=== PATIENT | female | born 1965 | race American Indian/Alaskan Native ===

== ENCOUNTER 2019-04-01 11:23 | Emergency (ER) | payer MEDICARE, MEDICAID ==
[2019-04-01 11:23] VITALS: BMI 21.7
[2019-04-01] MEDS ORDERED: Sodium Chloride 0.9% 1,000 ML IV ONE (11:53)
[2019-04-01 12:03] LABS: BASO # 0.1 K/uL (0.0-0.2); BASO % 0.6 % (0.0-2.0); EOS % 0.3 % (0.0-4.0); HEMOGLOBIN 13.8 g/dL (11.0-16.0); LYMPH # 1.4 K/uL (1.0-4.3); LYMPH % 14.1 % (20.0-40.0); MEAN CELL VOLUME 101.1 fL (81.0-99.0); MEAN CORPUSCULAR HEMOGLOBIN 34.9 pg (27.0-31.0); MEAN CORPUSCULAR HGB CONC 34.5 g/dL (33.0-37.0); MONO # 0.4 K/uL (0.0-0.8); MONO % 4.5 % (0.0-10.0); NEUT % 80.5 % (50.0-75.0); RBC 3.97 Mil/uL (3.80-5.20); RED CELL DISTRIBUTION WIDTH 13.1 % (11.5-14.5)
[2019-04-01] MEDS ORDERED: Sodium Chloride 0.9% 1,000 ML ONE (12:07)
[2019-04-01 12:20] LABS: ALB/GLOB RATIO 1.3 (1.0-2.1); BLOOD UREA NITROGEN 17 mg/dL (7-17); CALCIUM 9.8 mg/dl (8.6-10.4); GFR NON-AFRICAN AMERICAN > 60; LIPASE 88 U/L (23-300)
[2019-04-01 12:21] LABS: ALT/SGPT 21 U/L (9-52); AST/SGOT 47 U/L (14-36)
[2019-04-01 12:26] LABS: HCG,QUALITATIVE URINE NEGATIVE (NEGATIVE)
[2019-04-01 12:33] LABS: SQUAMOUS EPITHIAL 6 /hpf (0-5); URINE BACTERIA RARE (<OCC); URINE BILIRUBIN NEGATIVE (NEGATIVE); URINE BLOOD NEGATIVE (NEGATIVE); URINE CLARITY Hazy (Clear); URINE COLOR Yellow (YELLOW); URINE GLUCOSE (UA) 3+ mg/dL (Normal); URINE HYALINE CAST 0-2 /lpf (0-2); URINE LEUKOCYTE ESTERASE NEG Leu/uL (Negative); URINE PROTEIN 1+ mg/dL (NEGATIVE)
--- NOTE | 2019-04-01 12:55 | C.PDOC ---
History Of Present Illness 53 year old female presents to ED with complaint of abdominal pain, nausea, vomiting, and loose stools since this morning. Patient has a PMHx of peptic ulcer disease and does not currently take any medication for it. She denies chest pain, SOB, fever, hematuria, and dysuria. Time Seen by Provider: 04/01/19 11:43 Chief Complaint (Nursing): Abdominal Pain History Per: Patient History/Exam Limitations: no limitations Onset/Duration Of Symptoms: Hrs (4) Current Symptoms Are (Timing): Still Present Location Of Pain/Discomfort: Diffuse Radiation Of Pain To:: None Quality Of Discomfort: "Pain" Associated Symptoms: Nausea, Vomiting, Other (loose stools). denies: Fever, Chills, Urinary Symptoms Exacerbating Factors: None Alleviating Factors: None Past Medical History Reviewed: Historical Data, Nursing Documentation, Vital Signs Vital Signs: Last Vital Signs Temp 97.5 F L 04/01/19 11:27 Pulse 83 04/01/19 11:27 Resp 20 04/01/19 11:27 BP 175/91 H 04/01/19 11:27 Pulse Ox 100 04/01/19 11:27 Primary Care Provider: Non [facility] Provider, - Medical History PMH: Bipolar Disorder, CHF, COPD, HTN, Hypercholesterolemia Denies: Chronic Kidney Disease Other PMH: Peptic ulcer disease Surgical History: No Surg Hx Family History: States: Unknown Family Hx - Social History Hx Alcohol Use: No Hx Substance Use: Yes Review Of Systems Constitutional: Negative for: Fever, Chills, Weakness Cardiovascular: Negative for: Chest Pain Respiratory: Negative for: Shortness of Breath Gastrointestinal: Positive for: Nausea, Vomiting, Abdominal Pain, Other (loose stools). Negative for: Diarrhea, Melena, Hematochezia Genitourinary: Negative for: Dysuria, Frequency, Hematuria Physical Exam - Physical Exam Appears: Non-toxic, Other (actively vomiting, uncomfortable, moaning) Skin: Normal Color, Warm, Dry Head: Atraumatic, Normacephalic Oral Mucosa: Moist Neck: Normal ROM, Supple Chest: Symmetrical, No Deformity Cardiovascular: Rhythm Regular, No Murmur Respiratory: No Accessory Muscle Use, No Rales, No Rhonchi, No Wheezing Gastrointestinal/Abdominal: Soft, Tenderness (diffusely tender with tenderness greatest to the epigastric area), No Guarding, No Rebound, No Other (Naik's sign and McBurney's point tenderness) Extremity: Capillary Refill (<2 seconds) Pulses: Left Radial: Normal, Right Radial: Normal Neurological/Psych: Oriented x3, Normal Speech, Normal Cognition ED Course And Treatment - Laboratory Results Result Diagrams: 04/01/19 12:00 04/01/19 12:00 Lab Results: Total Bilirubin 0.8 mg/dL (0.2-1.3) 04/01/19 12:00 AST 47 U/L (14-36) H D 04/01/19 12:00 ALT 21 U/L (9-52) 04/01/19 12:00 Alkaline Phosphatase 101 U/L (38-126) 04/01/19 12:00 Total Protein 8.8 g/dL (6.3-8.3) H 04/01/19 12:00 Albumin 5.0 g/dL (3.5-5.0) 04/01/19 12:00 Globulin 3.8 gm/dL (2.2-3.9) 04/01/19 12:00 Albumin/Globulin Ratio 1.3 (1.0-2.1) 04/01/19 12:00 Lipase 88 U/L (23-300) 04/01/19 12:00 Urine Color Yellow (YELLOW) 04/01/19 12:18 Urine Clarity Hazy (Clear) 04/01/19 12:18 Urine pH 6.0 (5.0-8.0) 04/01/19 12:18 Ur Specific Crane 1.021 (1.003-1.030) 04/01/19 12:18 Urine Protein 1+ mg/dL (NEGATIVE) H 04/01/19 12:18 Urine Glucose (UA) 3+ mg/dL (Normal) H 04/01/19 12:18 Urine Ketones Trace mg/dL (NEGATIVE) 04/01/19 12:18 Urine Blood Negative (NEGATIVE) 04/01/19 12:18 Urine Nitrate Negative (NEGATIVE) 04/01/19 12:18 Urine Bilirubin Negative (NEGATIVE) 04/01/19 12:18 Urine Urobilinogen 2.0 mg/dL (0.2-1.0) H 04/01/19 12:18 Ur Leukocyte Esterase Neg Woodrow/uL (Negative) 05/13/19 12:18 Urine WBC (Auto) 1 /hpf (0-5) 04/01/19 12:18 Urine RBC (Auto) 2 /hpf (0-3) 04/01/19 12:18 Ur Squamous Epith Cells 6 /hpf (0-5) H 04/01/19 12:18 Urine Bacteria Rare (<OCC) 04/01/19 12:18 Hyaline Casts 0-2 /lpf (0-2) 04/01/19 12:18 Urine HCG, Qual Negative (NEGATIVE) 04/01/19 12:18 Urine HCG, Qual Negative (NEGATIVE) 04/01/19 12:18 O2 Sat by Pulse Oximetry: 100 (in RA) Pulse Ox Interpretation: Normal Progress Note: EKG, CMP, lipase, CBC, UA, and B-HCG ordered for patient. Patient given Protonix IVP, IV fluids, and Zofran IVP. Disposition Counseled Patient/Family Regarding: Studies Performed, Diagnosis, Need For Followup, Rx Given - Disposition Referrals: [facility] at [facility] [Outside] Disposition: HOME/ ROUTINE Disposition Time: 15:40 Condition: STABLE Additional Instructions: FOLLOW UP WITH YOUR DOCTOR OR CLINIC IN 1-2 DAYS USE MEDICATIONS NEEDED DRINK PLENTY OF CLEAR FLUIDS RETURN TO ER IF SYMPTOMS WORSEN Prescriptions: Famotidine [Pepcid] 20 mg PO BID PRN #15 tab PRN Reason: abdominal Ondansetron ODT [Zofran ODT] 1 odt PO BID PRN #15 odt PRN Reason: Nausea/Vomiting Instructions: Nausea and Vomiting, Adult (DC) Forms: [facility] ([place]) Print Language: GRENADIAN - Clinical Impression Clinical Impression: Abdominal pain, Nausea, Vomiting - Scribe Statement The provider has reviewed the documentation as recorded by the Scribe (Mary Bowden) All medical record entries made by the Scribe were at my direction and personally dictated by me. I have reviewed the chart and agree that the record accurately reflects my personal performance of the history, physical exam, medical decision making, and the department course for this patient. I have also personally directed, reviewed, and agree with the discharge instructions and disposition.
[2019-04-01] MEDS ORDERED: Morphine 4 MG/ML VIAL ONE (15:15)
[2019-04-01 15:22] LABS: BARBITURATES, UR NEGATIVE (NEGATIVE); BENZODIAZEPINES, UR NEGATIVE (NEGATIVE); OPIATES, UR NEGATIVE (NEGATIVE); PHENCYCLIDINE, UR NEGATIVE (NEGATIVE)
[2019-04-01 16:33] VITALS: BP 128/77; PULSE 83; RESP 18; TEMP 98.3; O2SAT 99
--- NOTE | 2019-04-03 13:24 | CARD ---
APPROVED REPORT Date of service: 04/01/2019 EKG Measurement Heart [id number] <Conclusion> Normal sinus rhythm Nonspecific T wave abnormality Borderline
== END 2019-04-01 16:40 | disposition home or self-care (01) ==
LOC: C.ER 11:23
DX: R11.2 Nausea with vomiting, unspecified (principal); R10.9 Unspecified abdominal pain; E78.00 Pure hypercholesterolemia, unspecified; I50.9 Heart failure, unspecified; J44.9 Chronic obstructive pulmonary disease, unspecified; F31.9 Bipolar disorder, unspecified; I10 Essential (primary) hypertension
CPT/HCPCS: 80053; 81001; 83690; 84703; 85025; 96361; 96374; 96375; 99285; C9113; G0480; J2270; J2405; J7030